=== PATIENT | male | born 1975 | race Caucasian/White ===

== ENCOUNTER 2021-08-20 15:35 | Emergency (ER) | payer BC ==
[2021-08-20] MEDS ORDERED: ONDANSETRON 4 MG/2 ML VIAL IVPUSH ONE ×2 (15:41→18:55)
[2021-08-20] MEDS ORDERED: FAMOTIDINE 20 MG/50 ML IVPB 20 MG/50 ML MG IVPB ONE (15:41)
[2021-08-20] MEDS ORDERED: SODIUM CHLORIDE 0.9% 500 ML INFUS.BAG IV ONE (15:41)
[2021-08-20 15:48] VITALS: TEMP 98; BMI 27.5
[2021-08-20] MEDS ORDERED: SODIUM CHLORIDE 1,000 ML IV STA (16:59)
[2021-08-20 17:12] LABS: CALCIUM 8.7 mg/dL (8.5-10.1)
[2021-08-20 17:13] LABS: ALBUMIN 4.2 g/dl (3.4-5.0)
[2021-08-20 17:15] LABS: MAGNESIUM 1.9 mg/dL (1.8-2.4)
[2021-08-20 17:17] LABS: CREATININE 1.2 mg/dL (0.55-1.3)
[2021-08-20 17:18] LABS: BILIRUBIN,TOTAL 1.9 mg/dL (0.2-1); TOT PROT 7.7 g/dl (6.4-8.2)
[2021-08-20 17:38] LABS: BASO % 0.3 % (0-2.0); EOS % 0.6 % (0-4.5); HEMATOCRIT 50.5 % (35.4-49); HEMOGLOBIN 17.3 GM/dL (11.7-16.9); LYMPH % 4.3 % (8-40); MCH 28.8 pg (25.7-33.7); MCHC 34.3 g/dl (32.0-35.9); MEAN CELL VOLUME 83.9 fl (80-96); MONO % 7.1 % (3.8-10.2); NEUT % 87.7 % (42.8-82.8); PLATELET COUNT 222 10^3/uL (134-434); RBC 6.02 M/mm3 (4.00-5.60); RDW 13.1 % (11.9-15.9); WHITE BLOOD COUNT 9.9 K/mm3 (4.0-10.0)
[2021-08-20] MEDS ORDERED: ONDANSETRON 4 MG/2 ML VIAL ONE (19:04)
[2021-08-20 22:43] VITALS: BP 105/67; PULSE 98
== END 2021-08-20 22:49 | disposition home or self-care (01) ==
LOC: FER 15:35
PROC: 3E033GC Introduction of Other Therapeutic Substance into Peripheral Vein, Percutaneous Approach (ICD-10-PCS; principal; 2021-08-20)
PROC: 3E033GC Introduction of Other Therapeutic Substance into Peripheral Vein, Percutaneous Approach (ICD-10-PCS; 2021-08-20)
PROC: 3E033GC Introduction of Other Therapeutic Substance into Peripheral Vein, Percutaneous Approach (ICD-10-PCS; 2021-08-20)
PROC: 3E0337Z Introduction of Electrolytic and Water Balance Substance into Peripheral Vein, Percutaneous Approach (ICD-10-PCS; 2021-08-20)
DX: A09 Infectious gastroenteritis and colitis, unspecified (principal)
CPT/HCPCS: 36415; 80053; 83690; 83735; 85025; 99284-25

== ENCOUNTER 2021-10-09 23:27 | Inpatient (IN) | payer BC ==
[2021-10-09] MEDS ORDERED: ACETAMINOPHEN 1000 MG/100 ML BAG IVPB ONE (23:40)
[2021-10-09] MEDS ORDERED: SODIUM CHLORIDE 0.9% 500 ML INFUS.BAG IV ONE (23:40)
[2021-10-09] MEDS ORDERED: FAMOTIDINE 20 MG/50 ML IVPB 20 MG/50 ML MG IVPB ONE (23:40)
[2021-10-10] MEDS ORDERED: FAMOTIDINE 10 MG/ML VIAL IVPB ONE (00:49)
[2021-10-10] MEDS ORDERED: ACETAMINOPHEN INJECTION 100 ML IVPB ONE ×2 (00:49→14:37)
[2021-10-10 01:10] LABS: BASO % 0.3 % (0-2.0); EOS % 0.4 % (0-4.5); HEMATOCRIT 48.3 % (35.4-49); HEMOGLOBIN 16.4 GM/dL (11.7-16.9); LYMPH % 5.2 % (8-40); MCH 28.6 pg (25.7-33.7); MEAN CELL VOLUME 84.3 fl (80-96); MEAN PLT VOLUME 9.3 fl (7.5-11.1); MONO % 11.1 % (3.8-10.2); PLATELET COUNT 225 10^3/uL (134-434); RBC 5.73 M/mm3 (4.00-5.60); RDW 13.3 % (11.9-15.9); WHITE BLOOD COUNT 15.8 K/mm3 (4.0-10.0)
[2021-10-10] MEDS ORDERED: morphine CARPU-JECT 4 MG/1 ML DISP.SYRIN IVPUSH ONE (01:49)
[2021-10-10] MEDS ORDERED: PIPERACILLIN/TAZOB 4.5 GM 4.5 GM in DEXTROSE 5%-WATER 100 ML IVPB ONE (01:50)
[2021-10-10] MEDS ORDERED: PIPERACILLIN/TAZOB 4.5 GM 4.5 GM/100 ML BAG IVPB ONE (01:54)
[2021-10-10 02:04] LABS: CALCIUM 8.9 mg/dL (8.5-10.1)
[2021-10-10 02:05] LABS: ALBUMIN 3.9 g/dl (3.4-5.0); BLOOD UREA NITROGEN 9.8 mg/dL (7-18); MAGNESIUM 2.2 mg/dL (1.8-2.4)
[2021-10-10 02:08] LABS: CREATININE 1.1 mg/dL (0.55-1.3)
[2021-10-10 02:10] LABS: BILIRUBIN,TOTAL 3.1 mg/dL (0.2-1); TOT PROT 7.3 g/dl (6.4-8.2)
[2021-10-10] MEDS ORDERED: morphine SULFATE 4 MG/ML VIAL ONE (02:30)
[2021-10-10 02:43] LABS: INR 1.52 (0.83-1.09); PROTHROMBIN TIME (PATIENT) 17.6 SEC (9.7-13.0)
[2021-10-10 02:45] LABS: ACTIVATED PTT 33.6 SECONDS (25.2-36.5)
[2021-10-10] MEDS ORDERED: SODIUM CHLORIDE 1,000 ML IV SCH ×2 (03:45→13:50)
[2021-10-10] MEDS ORDERED: ACETAMINOPHEN 1000 MG/100 ML BAG IVPB ONE ×3 (06:36→21:20)
[2021-10-10 08:18] LABS: BASO % 0.3 % (0-2.0); EOS % 0.4 % (0-4.5); HEMATOCRIT 45.8 % (35.4-49); HEMOGLOBIN 15.4 GM/dL (11.7-16.9); LYMPH % 4.7 % (8-40); MCH 28.5 pg (25.7-33.7); MCHC 33.8 g/dl (32.0-35.9); MEAN CELL VOLUME 84.4 fl (80-96); MEAN PLT VOLUME 9.6 fl (7.5-11.1); MONO % 11.3 % (3.8-10.2); NEUT % 83.3 % (42.8-82.8); PLATELET COUNT 216 10^3/uL (134-434); RBC 5.42 M/mm3 (4.00-5.60); RDW 13.1 % (11.9-15.9); WHITE BLOOD COUNT 16.6 K/mm3 (4.0-10.0)
[2021-10-10 08:31] LABS: INR 1.58 (0.83-1.09); PROTHROMBIN TIME (PATIENT) 18.3 SEC (9.7-13.0)
[2021-10-10 08:40] LABS: CALCIUM 8.4 mg/dL (8.5-10.1)
[2021-10-10 08:41] LABS: ALBUMIN 3.2 g/dl (3.4-5.0); BLOOD UREA NITROGEN 9.1 mg/dL (7-18); MAGNESIUM 2.1 mg/dL (1.8-2.4)
[2021-10-10 08:43] LABS: BILIRUBIN,DIRECT 1.1 mg/dL (0.0-0.2)
[2021-10-10 08:44] LABS: CREATININE 0.9 mg/dL (0.55-1.3); PHOSPHOROUS 2.9 mg/dL (2.5-4.9)
[2021-10-10 08:45] LABS: TOT PROT 6.3 g/dl (6.4-8.2)
[2021-10-10] MEDS ORDERED: PHYTONADIONE 10 MG/1 ML AMP IVPB ONE (09:00)
[2021-10-10] MEDS ORDERED: PIPERACILLIN/TAZOB 3.375 GM 3.375 GM/50 ML BAG IVPB ONE (09:05)
[2021-10-10] MEDS ORDERED: PIPERACILLIN/TAZOB 3.375 GM 3.375 GM in DEXTROSE 5%-WATER - 50 ML IVPB SCH ×2 (10:00→18:00)
[2021-10-10] MEDS ORDERED: BUPIVACAINE HCL/PF 0.5% (5MG/ML) 10 ML VIAL ONE (11:13)
[2021-10-10] MEDS ORDERED: MIDAZOLAM HCL 2 MG/2 ML SINGLE DOSE VIAL ONE (11:55)
[2021-10-10] MEDS ORDERED: PROPOFOL 20 ML ONE ×2 (11:55)
[2021-10-10] MEDS ORDERED: ROCURONIUM BROMIDE 50 MG/5 ML SYRINGE ONE (11:55)
[2021-10-10] MEDS ORDERED: DEXAMETHASONE SOD PHOSPHATE 4 MG/1 ML VIAL ONE (12:08)
[2021-10-10] MEDS ORDERED: KETOROLAC TROMETHAMINE 30 MG/1 ML VIAL ONE (12:08)
[2021-10-10] MEDS ORDERED: BUPIVACAINE HCL/PF 0.5% (5MG/ML) 10 ML VIAL IJ ONE (12:54)
[2021-10-10] MEDS ORDERED: NEOSTIGMINE METHYLSULFATE 0.5 MG/ML - 10 ML MDV ONE (13:04)
[2021-10-10] MEDS ORDERED: ONDANSETRON 4 MG/2 ML VIAL IVPUSH PRN ×2 (13:34→13:50)
[2021-10-10] MEDS ORDERED: oxyCODONE HCL 5 MG TABLET PO PRN ×2 (13:34→13:50)
[2021-10-10] MEDS ORDERED: PROMETHAZINE HCL 25 MG/1 ML VIAL IVPUSH PRN (13:34)
[2021-10-10 16:54] VITALS: BMI 28.4
[2021-10-10] MEDS ORDERED: PIPERACILLIN/TAZOBACTAM 3.375 GM VIAL IVPB ONE (17:04)
[2021-10-10] MEDS ORDERED: DEXTROSE 5%-WATER - 50 ML IVPB ONE (17:04)
[2021-10-10] MEDS: PIPERACILLIN/TAZOB 3.375 GM 3.375 GM in DEXTROSE 5%-WATER - 50 ML IVPB SCH (17:19)
[2021-10-11] MEDS ORDERED: DEXTROSE 5%-WATER - 50 ML IVPB ONE (01:14)
[2021-10-11] MEDS ORDERED: PIPERACILLIN/TAZOBACTAM 3.375 GM VIAL IVPB ONE (01:14)
[2021-10-11] MEDS: PIPERACILLIN/TAZOB 3.375 GM 3.375 GM in DEXTROSE 5%-WATER - 50 ML IVPB SCH (01:19)
[2021-10-11] MEDS ORDERED: KETOROLAC TROMETHAMINE 30 MG/1 ML VIAL IVPUSH ONE (08:32)
[2021-10-11 08:38] LABS: BASO % 0.2 % (0-2.0); EOS % 0.5 % (0-4.5); HEMOGLOBIN 13.1 GM/dL (11.7-16.9); LYMPH % 13.6 % (8-40); MCH 29.1 pg (25.7-33.7); MCHC 34.5 g/dl (32.0-35.9); MEAN CELL VOLUME 84.5 fl (80-96); MEAN PLT VOLUME 9.7 fl (7.5-11.1); MONO % 9.4 % (3.8-10.2); NEUT % 76.3 % (42.8-82.8); PLATELET COUNT 190 10^3/uL (134-434); RDW 13.4 % (11.9-15.9); WHITE BLOOD COUNT 11.5 K/mm3 (4.0-10.0)
[2021-10-11 09:37] LABS: ALBUMIN 2.6 g/dl (3.4-5.0)
[2021-10-11 09:40] LABS: BILIRUBIN,DIRECT 0.6 mg/dL (0.0-0.2)
[2021-10-11 09:42] LABS: BILIRUBIN,TOTAL 2.1 mg/dL (0.2-1); TOT PROT 5.4 g/dl (6.4-8.2)
[2021-10-11 09:43] LABS: CALCIUM 8.2 mg/dL (8.5-10.1)
[2021-10-11 09:44] LABS: ALBUMIN 2.7 g/dl (3.4-5.0); BLOOD UREA NITROGEN 15.6 mg/dL (7-18); MAGNESIUM 2.1 mg/dL (1.8-2.4)
[2021-10-11 09:46] LABS: CREATININE 1.1 mg/dL (0.55-1.3)
[2021-10-11 09:47] LABS: PHOSPHOROUS 2.5 mg/dL (2.5-4.9)
[2021-10-11 09:48] LABS: BILIRUBIN,TOTAL 2.1 mg/dL (0.2-1); TOT PROT 5.4 g/dl (6.4-8.2)
[2021-10-11] MEDS: ACETAMINOPHEN 500 MG TABLET (FP) PO SCH ×3 (12:41→22:45)
[2021-10-12] MEDS: ACETAMINOPHEN 500 MG TABLET (FP) PO SCH (05:47)
[2021-10-12] MEDS ORDERED: oxyCODONE HCL 5 MG TABLET PO PRN (07:31)
[2021-10-12 09:33] LABS: BASO % 0.6 % (0-2.0); EOS % 3.5 % (0-4.5); HEMATOCRIT 39.4 % (35.4-49); HEMOGLOBIN 13.3 GM/dL (11.7-16.9); LYMPH % 26.3 % (8-40); MCH 28.6 pg (25.7-33.7); MCHC 33.9 g/dl (32.0-35.9); MEAN CELL VOLUME 84.5 fl (80-96); MEAN PLT VOLUME 9.3 fl (7.5-11.1); MONO % 11.3 % (3.8-10.2); NEUT % 58.3 % (42.8-82.8); PLATELET COUNT 231 10^3/uL (134-434); RBC 4.66 M/mm3 (4.00-5.60); WHITE BLOOD COUNT 6.6 K/mm3 (4.0-10.0)
[2021-10-12 09:53] LABS: ALBUMIN 2.7 g/dl (3.4-5.0); BLOOD UREA NITROGEN 16.7 mg/dL (7-18); CALCIUM 8.4 mg/dL (8.5-10.1)
[2021-10-12 09:57] LABS: CREATININE 0.9 mg/dL (0.55-1.3)
[2021-10-12 09:59] LABS: TOT PROT 5.7 g/dl (6.4-8.2)
[2021-10-12] MEDS ORDERED: ACETAMINOPHEN 500 MG TABLET (FP) PO SCH (12:00)
[2021-10-12 15:05] VITALS: BP 120/69; PULSE 75; TEMP 98.9
== END 2021-10-12 16:07 | disposition home or self-care (01) | DRG 418 ==
LOC: JER 23:27 → JERBED 10-10 01:51 → J5S 10-10 16:16
PROVIDERS: ADMIT Internal Medicine; ATTEND Internal Medicine
PROC: 0FT44ZZ Resection of Gallbladder, Percutaneous Endoscopic Approach (ICD-10-PCS; principal; 2021-10-10 12:00)
DX: K80.01 Calculus of gallbladder with acute cholecystitis with obstruction (principal); R17 Unspecified jaundice; K21.9 Gastro-esophageal reflux disease without esophagitis; M51.36 Other intervertebral disc degeneration, lumbar region; K82.A1 Gangrene of gallbladder in cholecystitis
CPT/HCPCS: 36415; 71046-TC-FY; 74181-TC; 76705-TC; 80053; 80076; 82248; 83690; 83735; 84100; 85025; 85610; 85730; 86850; 86900; 86901; 88304-TC; 94760; 99285-25; C9803-CS; U0003; U0005

== ENCOUNTER 2022-10-11 18:54 | Emergency (ER) | payer BC ==
[2022-10-11 19:06] VITALS: BP 126/78; PULSE 79; RESP 17; TEMP 97.5; BMI 31.4
[2022-10-11] MEDS ORDERED: DEXAMETHASONE 4 MG TABLET (FP) PO ONE (20:25)
[2022-10-11] MEDS ORDERED: KETOROLAC TROMETHAMINE 30 MG/1 ML VIAL IM ONE (20:26)
[2022-10-11] MEDS ORDERED: KETOROLAC TROMETHAMINE 30 MG/1 ML VIAL ONE (20:30)
[2022-10-11] MEDS ORDERED: DEXAMETHASONE SOD PHOSPHATE 10 MG/1 ML VIAL ONE (20:30)
[2022-10-11 21:07] LABS: THROAT:GRP A STREP NOT DETECTED (NOTDETECTED)
== END 2022-10-11 21:28 | disposition home or self-care (01) ==
LOC: JERFT 18:54
PROC: 3E0233Z Introduction of Anti-inflammatory into Muscle, Percutaneous Approach (ICD-10-PCS; principal; 2022-10-11)
DX: R53.1 Weakness (principal); R68.83 Chills (without fever); R51.9 Headache, unspecified; B34.9 Viral infection, unspecified; Z20.822 Contact with and (suspected) exposure to COVID-19
CPT/HCPCS: 0241U-QW; 87070; 87651; 99284-25